=== PATIENT | female | born 1985 | race African-American/Black ===

== ENCOUNTER 2022-11-22 12:51 | Outpatient (OUT) | payer OTHER, SELFPAY ==
--- NOTE | 2022-11-22 13:15 | US_ITS ---
[place] [id number] Patient Name: DWIGHT ROE MRN: [id number] date: 1985 Sex: F Assigned Patient Location: [place] Current Patient Location: [place] Accession/Order Number: [id number] Exam Date: 11/22/2022 13:40 Report Date: 11/22/2022 16:30 At the request of: CHRISTOFER CONLEY Procedure: US venous doppler LE LT EXAMINATION: US venous doppler LE LT HISTORY: Left leg pain COMPARISON: No relevant comparison available. FINDINGS: REGION: Left leg THROMBI: None. COMPRESSIBILITY: Normal compressibility. FLOW: Normal waveform and antegrade flow between 5 and 20 cm/s. OTHER: None. IMPRESSION: 1. No deep vein thrombus within the left lower extremity. Electronically authenticated by: EMI JARAMILLO Date: 11/22/2022 16:30
== END 2022-11-22 12:52 ==
LOC: US 12:58
PROVIDERS: PCP Nurse Practitioner Family; Visit Provider Nurse Practitioner Family
DX: Z86.718 Personal history of other venous thrombosis and embolism (principal)
CPT/HCPCS: 93971